=== PATIENT | male | born 1970 | race Caucasian/White ===

== ENCOUNTER → 2016-10-18 | Outpatient (CLI) | payer OTHER ==
[~2016-10-18] MED LIST: ACETAMINOPHEN PO; ALLERGY10 M1 PO
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
== END | disposition home or self-care (01) ==
LOC: SMRI 09:30
DX: R41.3 Other amnesia (principal)
CPT/HCPCS: 70553; A9581

== ENCOUNTER → 2017-01-22 | Outpatient (CLI) | payer OTHER ==
--- NOTE | ~2017-01-22 | EE ---
Unit #: [id number] #: [id number] Patient: PANCHITO DICKINSON [id number] [address] [address] [id number] O MR#: [id number] NAME: PANCHITO DICKINSON. : 1970 SEX: M STUDY DATE/TIME: 01/22/2017 UNIT: CEEG ROOM: STUDY DESCRIPTION: EEG Attending Physician: Leslie Chaudhari M.D. Referring Physician: Leslie Chaudhari M.D. Primary Care Physician: Martin ePna M.D. NEURODIAGNOSTICS REPORT EXAM EEG REASON FOR STUDY Seizures. TECH [employer] TECHNICAL INFORMATION This is a routine EEG performed using the standard International 10-20 System of electrode placement. Photic stimulation was performed. Hyperventilation was also performed. REPORT Throughout the entire study, the best background rhythm seen is approximately 10 Hz. This rhythm is seen in both posterior head regions symmetrically and does attenuate to eye opening and closure. Hyperventilation was performed which failed to reproduce any abnormal buildup. Photic stimulation was also performed which failed to reproduce any abnormal buildup. Throughout the entire study, there were no electrographic seizures recorded nor were there any discrete independent epileptiform abnormalities seen. There was some drowsiness seen during the EEG. INTERPRETATION This is a normal awake EEG. A normal EEG does not rule out the possibility of seizure disorder. Clinical correlation is advised. Dictated by... Devin Carlin II., M.D. GWS/df TD: 01/26/2017 13:10 JOB #: [id number] Unit #: [id number] #: [id number] Patient: PANCHITO DICKINSON NEURODIAGNOSTICS REPORT Page 1 of 1 X NEURODIAGNOSTICS REPORT
== END | disposition home or self-care (01) ==
LOC: CMRI 01-18 09:00 → CEEG 07:52 → CMRI 08:00
DX: R55 Syncope and collapse (principal)
CPT/HCPCS: 95816